=== PATIENT | female | born 2000 | race African-American/Black ===

== ENCOUNTER 2019-08-16 16:05 | Emergency (ER) | payer OTHER ==
[~2019-08-16] VITALS: Ht 162.6 cm; Wt 72.6 kg
--- OUTSIDE RECORDS SUMMARY | 2019-08-16 16:08 | XMS REPORT | Summary of Care ---
Author Author [facility] Organization [facility] Address Unknown Phone Unavailable Encounter HQ Nataly(FIN) [id number] Date(s): 12/28/18 - 12/28/18 [facility] [place] [address] [place] [address]- Discharge Disposition: Home or Self Care Attending Physician: Rosalinda Gaston Vital Signs Most recent to 1 oldest [Reference Range]: Height 165.1 cm (12/28/18 9:22 AM) Temperature Oral 98.3 DegF [96.4-99.1 DegF] (12/28/18 9:22 AM) Blood Pressure 115/72 mmHg [90-140/60-90 mmHg] (12/28/18 9:22 AM) Weight 71.364 kg (12/28/18 9:22 AM) Body Mass Index 26.18 m2 (12/28/18 9:22 AM) Problem List Condition Effective Dates Status Health Status Informan t Anemia(Confirmed) Active Asthma(Confirmed) Active Hyperlipidemia(Confi Active rmed) Irregular Active menses(Confirmed) Body mass index Active (BMI) 26.0-26.9, adult(Confirmed) Elevated Active TSH(Confirmed) Low serum vitamin Active B12(Confirmed) Allergies, Adverse Reactions, Alerts No Known Medication Allergies Medications Vitamin B12 1000 mcg oral tablet 1,000 microgram = 1 tab, PO, Daily, # 100 tab, 3 Refill(s) Start Date: 12/30/18 Status: Ordered Results No data available for this section Immunizations No data available for this section Procedures Procedure Date Related Diagnosis Body Site Status None Completed Social History Social History Type Response Smoking Status Never smoker; Exposure to T obacco Smoke None; Cigarette Smoking Last 365 Days No; Reg Smoking Cessation Counseli ng No entered on: 12/28/18 Assessment and Plan No data available for this section
--- OUTSIDE RECORDS SUMMARY | 2019-08-16 16:08 | XMS REPORT | Summary of Care ---
Author Author [facility] Organization [facility] Address Unknown Phone Unavailable Encounter HQ Encntr_alias(FIN) [id number] Date(s): 12/30/18 - 12/31/18 [facility] [place] [address] [place] [address]- Vital Signs No data available for this section Problem List Condition Effective Dates Status Health Status Informan t Anemia(Confirmed) Active Asthma(Confirmed) Active Hyperlipidemia(Confi Active rmed) Irregular Active menses(Confirmed) Body mass index Active (BMI) 26.0-26.9, adult(Confirmed) Elevated Active TSH(Confirmed) Low serum vitamin Active B12(Confirmed) Allergies, Adverse Reactions, Alerts No Known Medication Allergies Medications No data available for this section Results No data available for this section [...]
--- OUTSIDE RECORDS SUMMARY | 2019-08-16 16:08 | XMS REPORT | Summary of Care ---
Author Author [facility] Organization [facility] Address Unknown Phone Unavailable Encounter HQ Encntr_alias(FIN) [id number] Date(s): 12/30/18 - 12/31/18 [facility] [place] [address] [place] [address]- Vital Signs No data available for this [...]
--- OUTSIDE RECORDS SUMMARY | 2019-08-16 16:08 | XMS REPORT | Continuity of Care Document ---
Author Author Kuldeep Brown [employer]ift VIOLETTE [email or web address] Address Unknown Phone Unavailable Care Team Providers Care Tube Heater Name Role Phone [email or web address] Information [email or web address] Unavailable Un available Problems Problem Status Onset Date Classification Date Reported Comments Source Anemia (disorder) Active Problem 01/02/2019 [facility] Asthma (disorder) Active Problem 01/02/2019 [facility] Hyperlipidemia (disorder) Acti ve Problem [facility] Irregular periods (finding) Ac tive Problem [facility] Overweight in adulthood with body mass i ndex of 25 or more but less than 30 (finding) Active Problem 01/02/2019 [facility] Raised TSH level (finding) Act lian Problem [facility] Serum vitamin B12 low (finding) Active Problem [facility] Medications Medication Details Route Status Patient Instructions Ordering Provider Order Date Source Vitamin B12 1000 mcg oral tablet 1,000 microgram = 1 tab, PO, Daily, # 100 tab, 3 Refill(s) Active 12/30/2018 [facility] Allergies, Adverse Reactions, Alerts Substance Category Reaction Severity Reaction type Status Date Reported Comments Source No Known Medication Allergies Assertion Drug aller gy [facility] Immunizations No Data Provided for This Section Results No Data Provided for This Section Pathology Reports No Data Provided for This Section Diagnostic Reports No Data Provided for This Section Consultation Notes No Data Provided for This Section Discharge Summaries No Data Provided for This Section History and Physicals No Data Provided for This Section Vital Signs Vital Sign Value Date Comments Source Systolic (mm Hg) 115 12/28/2018 [facility] Diastolic (mm Hg) 72 12/28/2018 [facility] Temperature Oral (F) 98.3 F 12/28/2018 [facility] Height 165.1 cm 12/28/2018 [facility] Weight 71.364 12/28/2018 [facility] BMI Calculated 26.18 12/28/2018 [facility] Encounters Location Location Details Encounter Type Encounter Number Reason For Visit Attending Provider ADM Date DC Date Status Source Outpatient [id number] Rosalinda Gaston 12/28/2018 [facility] [place] [facility] [id number] Rosalinda Gaston 12/28/2018 12/29/2018 [facility] Between Visit [id number] 12/30/2018 12/31/2018 [facility] Between Visit [id number] 12/30/2018 12/31/2018 [facility] Procedures No Data Provided for This Section Assessment and Plan No Data Provided for This Section Plan of Care No Data Provided for This Section Social History Social History Date Source Social History TypeResponse Smoking Status Never smoker; Exposure to Tobacco Smoke None; Cigarette Smoking Last 365 Days No; Reg Smoking Cessation Counseling No entered on: 12/28/18 12/28/2018 [facility] Family History No Data Provided for This Section Advance Directives No Data Provided for This Section Functional Status No Data Provided for This Section
--- NOTE | 2019-08-16 16:44 | Diagnostic Imaging Report ---
Exam: Right hand 3 views History: Hand pain Comparison: None. Findings: No fracture or malalignment. Joint spaces preserved. No abnormal soft tissue calcification or soft tissue defect. Impression: No displaced fracture Signed by: Dr. Lew Valladares M.D. on 08/16/2019 4:41 PM
--- NOTE | 2019-08-16 16:51 | Emergency Department Note ---
History of Present Illnes History of Present Illness Chief Complaint: Extremity Trauma/Pain History of Present Illness This is a 19 year old female c cc of pain right hand after hitting a wall 2 days ago.. Historian: Patient Arrival Mode: Car Onset (how long ago): day(s) (2) Location: righ hand Quality: sharp Radiation: non-radiation Severity: moderate Onset quality: sudden Duration (how long): day(s) (2) Timing of current episode: constant Progression: unchanged Chronicity: new Context: recent illness, recent surgery, recent immobilization, recent travel, trauma/injury, new medications, hx of DVT/PE, non-compliance w/ medications, other Relieving factors: none Exacerbating factors: none Associated symptoms: denies other symptoms Past Medical/Family History Physician Review I have reviewed the patient's past medical and family history. Any updates have been documented here. Past Medical History Recent Fever: No Clinical Suspicion of Infectio: No New/Unexplained Change in Ment: No Past Medical History: None Past Surgical History: None Social History Smoking Cessation: Never Smoker Counseling Performed: No Alcohol Use: None Any Illegal Drug Use: No TB Exposure/Symptoms: No Physically hurt or threatened: No Family History Family history of heart diseas: No Other Any Pre-Existing Lines (PICC,: No Is patient up to date on immun: Yes Last Flu: no Last Pneumovax: no Review of Systems Review of Systems Constitutional: no symptoms EENTM: no symptoms Cardiovascular: no symptoms Respiratory: no symptoms Gastrointestinal: no symptoms Genitourinary: no symptoms Musculoskeletal: as per HPI Neurological: no symptoms Psychological: no symptoms Endocrine: no symptoms Hematological/Lymphatic: no symptoms Review of other systems All other systems reviewed and negative. Physical Exam Related Data Allergies: Coded Allergies: No Known Allergies (Unverified , 08/16/19) Triage Vital Signs Vital Signs Date Time Temp Pulse Resp B/P (MAP) Pulse Ox O2 Delivery O2 Flow Rate FiO2 08/16/19 16:16 95.2 70 18 115/71 100 Vital signs reviewed: Yes Physical Exam CONSTITUTIONAL Constitutional: well-developed, well-nourished HENT HENT: normocephalic, atraumatic, oropharynx clear/moist, nose normal HENT L/R: left ext ear normal, right ext ear normal EYES Eyes: PERRL, conjunctivae normal NECK Neck: ROM normal PULMONARY Pulmonary: effort normal, breath sounds normal CARDIOVASCULAR Cardiovascular: regular rhythm, heart sounds normal, capillary refill normal, normal rate GASTROINTESTINAL Abdominal: soft, nontender, bowel sounds normal GENITOURINARY Genitourinary: exam deferred SKIN Skin: warm, dry MUSCULOSKELETAL Musculoskeletal: tenderness (right hand) NEUROLOGICAL Neurological: alert, oriented x 3, no gross motor or sensory deficits PSYCHOLOGICAL Psychological: mood/affect normal, judgement normal Results Imaging Imaging results reviewed: Yes Critical Care Time Subsequent provider I assumed direction of critical care for this patient from another provider of my specialty. Assessment & Plan Assessment & Plan Final Impression: (1) Acute pain due to trauma (2) Contusion of right hand Assessment & Plan naprosyn Depart Disposition: HOME, SELF-CARE Last Vital Signs Date Time Temp Pulse Resp B/P (MAP) Pulse Ox O2 Delivery O2 Flow Rate FiO2 08/16/19 16:16 95.2 70 18 115/71 100 NATHALIE ELMORE MD August 16, 2019 16:51
== END 2019-08-16 16:56 | disposition home or self-care (01) ==
LOC: FSED 16:05
DX: M79.641 Pain in right hand (principal); S60.221A Contusion of right hand, initial encounter; X79.XXXA Intentional self-harm by blunt object, initial encounter
CPT/HCPCS: 99282